=== PATIENT | female | born 1950 | race African-American/Black ===

== ENCOUNTER 2018-03-31 12:29 | Emergency (ER) | payer MEDICARE, MEDICAID ==
[~2018-03-31] VITALS: Ht 167.6 cm; Wt 75.0 kg
[~2018-03-31 12:29] MED LIST: BUPR300T54 PO; MIRT-91 PO; TRAZ-212 PO
[2018-03-31 12:38] VITALS: BP 137/68
== END 2018-03-31 16:56 | disposition left against medical advice (07) ==
LOC: ER 12:29
DX: M25.562 Pain in left knee (principal); F41.9 Anxiety disorder, unspecified; F32.9 Major depressive disorder, single episode, unspecified; F12.10 Cannabis abuse, uncomplicated; Z90.49 Acquired absence of other specified parts of digestive tract; Z53.21 Procedure and treatment not carried out due to patient leaving prior to being seen by health care provider

== ENCOUNTER 2019-03-11 19:16 | Emergency (ER) | payer MEDICARE, MEDICAID ==
[~2019-03-11] VITALS: Ht 167.6 cm; Wt 76.8 kg
[~2019-03-11 19:16] MED LIST changes: -TRAZ-212 PO; +TRAZ-251 PO
[2019-03-11 22:56] LABS: CLARITY URINE TURBID (CLEAR); COLOR URINE RED (YELLOW); KETONES URINE NEGATIVE (NEGATIVE); LEUKOCYTE ESTERASE URINE 2+ (NEGATIVE); NITRITE URINE NEGATIVE (NEGATIVE); OCCULT BLOOD URINE 3+ (NEGATIVE); PROTEIN URINE 2+ (NEGATIVE); SPECIFIC GRAVITY URINE 1.012 (1.005-1.030); UROBILINOGEN URINE 0.2 E.U./dL (0.2-1.0)
[2019-03-11 23:10] LABS: BASOPHILS % 0.3 % (0.0-2.0); EOSINOPHILS % 0.4 % (0.0-5.0); HEMATOCRIT. 39.8 % (36.0-48.0); HEMOGLOBIN. 13.3 g/dL (12.0-16.0); LYMPHOCYTES % 17.4 % (20.0-50.0); MEAN CORPUSCULAR HEMOGLOBIN 29.5 pg (28.0-32.0); MEAN CORPUSCULAR VOLUME 88.1 fL (81.0-99.0); MEAN PLATELET VOLUME 7.5 fl (7.4-10.4); MONOCYTES % 13.6 % (2.0-8.0); NEUTROPHILS % 68.3 % (40.0-76.0); PLATELET 316 x1000/uL (130-400); RED BLOOD CELL COUNT 4.52 mill/uL (4.2-5.4); RED CELL DISTRIBUTION WIDTH 14.9 % (11.6-14.6)
[2019-03-11 23:14] LABS: CHLORIDE 106 mEq/L (98-107)
[2019-03-11 23:16] LABS: INR 1.1; PARTIAL THROMBOPLASTIN TIME 30.3 sec (23.4-31.0)
[2019-03-11] MEDS ORDERED: CEFTRIAXONE 1 G PREMIX 50 ML IV NR (23:30)
[2019-03-12 02:30] VITALS: BP 122/83
== END 2019-03-12 02:30 | disposition home or self-care (01) ==
LOC: ER 19:16
DX: N39.0 Urinary tract infection, site not specified (principal); F12.10 Cannabis abuse, uncomplicated; Z98.890 Other specified postprocedural states; Z79.899 Other long term (current) drug therapy; R31.9 Hematuria, unspecified; N20.0 Calculus of kidney
CPT/HCPCS: 36415; 74176; 80053; 81003; 85025; 85610; 85730; 96365; 99284; J0696

== ENCOUNTER 2021-03-08 14:51 | Inpatient (IN) | payer MEDICARE, MEDICAID ==
[~2021-03-08] VITALS: Ht 167.6 cm; Wt 73.2 kg
[~2021-03-08 14:51] MED LIST changes: +BUPR-315 PO; -BUPR300T54 PO; +MIRT-90 PO; -MIRT-91 PO
[2021-03-08] MEDS ORDERED: ONDANSETRON HCL 4MG/2ML INJ IV STA (16:05)
[2021-03-08] MEDS ORDERED: MORPHINE SULFATE 4 MG/ML CPJ (NOT FOR IM USE) IV STA (16:05)
[2021-03-08] MEDS ORDERED: SODIUM CHLORIDE 0.9% 1,000 ML IV ONE (16:15)
[2021-03-08 16:24] LABS: BASOPHILS % 0.4 % (0.0-2.0); EOSINOPHILS % 1.3 % (0.0-5.0); HEMATOCRIT. 39.1 % (36.0-48.0); HEMOGLOBIN. 13.5 g/dL (12.0-16.0); LYMPHOCYTES % 28.4 % (20.0-50.0); MEAN CORPUSCULAR HEMOGLOBIN 30.2 pg (28.0-32.0); MEAN CORPUSCULAR VOLUME 87.3 fL (81.0-99.0); NEUTROPHILS % 55.9 % (40.0-76.0); PLATELET 417 x1000/uL (130-400); RED BLOOD CELL COUNT 4.48 mill/uL (4.2-5.4); RED CELL DISTRIBUTION WIDTH 14.4 % (11.6-14.6)
[2021-03-08 16:30] LABS: CHLORIDE 103 mEq/L (98-107)
[2021-03-08 16:32] LABS: INR 1.1; PROTHROMBIN TIME 11.7 sec (9.6-11.0)
[2021-03-08 19:11] LABS: CLARITY URINE CLEAR (CLEAR); COLOR URINE YELLOW (YELLOW); KETONES URINE NEGATIVE (NEGATIVE); LEUKOCYTE ESTERASE URINE TRACE (NEGATIVE); NITRITE URINE NEGATIVE (NEGATIVE); OCCULT BLOOD URINE NEGATIVE (NEGATIVE); PH URINE 5.5 (4.5-8.0); PROTEIN URINE NEGATIVE (NEGATIVE); SPECIFIC GRAVITY URINE 1.016 (1.005-1.030)
[2021-03-08] MEDS ORDERED: ACETAMINOPHEN 650MG SUPP PR PRN (21:30)
[2021-03-08] MEDS ORDERED: NALOXONE HCL 0.4MG/ML VIAL IV PRN (21:45)
[2021-03-08 22:55] VITALS: BP 142/75
[2021-03-09] VITALS: BP 142/75
[2021-03-09] MEDS: DEXT 5%/0.45% NACL KCL 10MEQ/L 1,000 ML IV SCH ×3 (00:15→16:00)
[2021-03-09] MEDS: ENOXAPARIN 40MG/0.4ML SYR SUBCUT SCH ×2 (00:16→21:22)
[2021-03-09] MEDS: HYDROMORPHONE HCL/PF 2MG/ML CPJ IV PRN ×3 (00:17→15:21)
[2021-03-09] MEDS ORDERED: AMLO5TAB88 PO (02:32)
[2021-03-09] MEDS ORDERED: BUSP10TA3 PO (02:32)
[2021-03-09] MEDS ORDERED: MIRT45TA83 PO (02:33)
[2021-03-09] MEDS ORDERED: TRAZ-252 PO (02:33)
[2021-03-09 04:00] VITALS: BP 138/99
[2021-03-09 08:05] VITALS: BP 138/87
[2021-03-09 10:37] LABS: HEMATOCRIT. 35.7 % (36.0-48.0); HEMOGLOBIN. 12.2 g/dL (12.0-16.0); MEAN CORPUSCULAR HEMOGLOBIN 30.5 pg (28.0-32.0); MEAN CORPUSCULAR VOLUME 89.5 fL (81.0-99.0); MEAN PLATELET VOLUME 7.4 fl (7.4-10.4); PLATELET 376 x1000/uL (130-400); RED BLOOD CELL COUNT 3.99 mill/uL (4.2-5.4); RED CELL DISTRIBUTION WIDTH 14.5 % (11.6-14.6)
[2021-03-09 10:45] LABS: CHLORIDE 107 mEq/L (98-107)
[2021-03-09] MEDS: METOCLOPRAMIDE HCL 10MG/2ML VIAL IV SCH ×2 (11:38→17:39)
[2021-03-09 11:47] LABS: PLATELET ESTIMATE NORMAL
[2021-03-09 12:01] VITALS: BP 153/83
[2021-03-09 16:18] VITALS: BP 135/78
[2021-03-09] MEDS: ONDANSETRON HCL 4MG/2ML INJ IV PRN (16:39)
[2021-03-09] MEDS ORDERED: HYDRALAZINE 10 MG in SODIUM CHLORIDE 0.9% 49.5 ML IV PRN (17:00)
[2021-03-09] MEDS ORDERED: HYDRALAZINE 20MG/ML VIAL IV PRN ×2 (17:00→17:45)
[2021-03-09] MEDS ORDERED: HYDRALAZINE 20MG/ML VIAL ONE (17:41)
[2021-03-09 20:00] VITALS: BP 110/74
[2021-03-10] VITALS: BP 132/76
[2021-03-10] MEDS: METOCLOPRAMIDE HCL 10MG/2ML VIAL IV SCH ×4 (00:27→19:04)
[2021-03-10 04:00] VITALS: BP 148/78
[2021-03-10] MEDS: DEXT 5%/0.45% NACL KCL 10MEQ/L 1,000 ML IV SCH ×2 (06:10→21:23)
[2021-03-10 08:00] VITALS: BP 152/96
[2021-03-10 12:00] VITALS: BP 129/84
[2021-03-10] MEDS: KETOROLAC 15MG/ML VIAL IV PRN ×2 (15:17→21:14)
[2021-03-10 16:00] VITALS: BP 168/92
[2021-03-10 20:00] VITALS: BP 170/99
[2021-03-10] MEDS: ENOXAPARIN 40MG/0.4ML SYR SUBCUT SCH (21:14)
[2021-03-11] VITALS: BP 163/99
[2021-03-11] MEDS: METOCLOPRAMIDE HCL 10MG/2ML VIAL IV SCH ×4 (00:16→18:13)
[2021-03-11 04:00] VITALS: BP 158/91
[2021-03-11] MEDS: KETOROLAC 15MG/ML VIAL IV PRN ×2 (05:09→15:02)
[2021-03-11 12:00] VITALS: BP 161/96
[2021-03-11] MEDS: HYDRALAZINE 20MG/ML VIAL IV PRN (13:30)
[2021-03-11] MEDS: DEXT 5%/0.45% NACL KCL 10MEQ/L 1,000 ML IV SCH (15:13)
[2021-03-11 20:00] VITALS: BP 127/79
[2021-03-11] MEDS: ONDANSETRON HCL 4MG/2ML INJ IV PRN (20:06)
[2021-03-11] MEDS: ENOXAPARIN 40MG/0.4ML SYR SUBCUT SCH (20:34)
[2021-03-12] VITALS: BP 149/75
[2021-03-12] MEDS: METOCLOPRAMIDE HCL 10MG/2ML VIAL IV SCH ×4 (00:50→18:39)
[2021-03-12] MEDS: KETOROLAC 15MG/ML VIAL IV PRN (02:31)
[2021-03-12 04:00] VITALS: BP 122/76
[2021-03-12] MEDS: DEXT 5%/0.45% NACL KCL 10MEQ/L 1,000 ML IV SCH ×2 (04:31→12:19)
[2021-03-12 08:00] VITALS: BP 105/81
[2021-03-12 12:00] VITALS: BP 138/84
[2021-03-12] MEDS ORDERED: DIATR MEGLU/DIATRIZOATE SOLN 120ML ONE (15:22)
[2021-03-12 16:00] VITALS: BP 125/81
[2021-03-12 19:55] LABS: BASOPHILS % 0.4 % (0.0-2.0); EOSINOPHILS % 0.7 % (0.0-5.0); HEMATOCRIT. 39.1 % (36.0-48.0); HEMOGLOBIN. 13.3 g/dL (12.0-16.0); LYMPHOCYTES % 23.7 % (20.0-50.0); MEAN CORPUSCULAR HEMOGLOBIN 29.9 pg (28.0-32.0); MEAN CORPUSCULAR VOLUME 87.8 fL (81.0-99.0); MEAN PLATELET VOLUME 7.3 fl (7.4-10.4); MONOCYTES % 10.1 % (2.0-8.0); NEUTROPHILS % 65.1 % (40.0-76.0); PLATELET 431 x1000/uL (130-400); RED BLOOD CELL COUNT 4.46 mill/uL (4.2-5.4); RED CELL DISTRIBUTION WIDTH 14.2 % (11.6-14.6)
[2021-03-12 20:00] VITALS: BP 153/67
[2021-03-12] MEDS: ENOXAPARIN 40MG/0.4ML SYR SUBCUT SCH (20:48)
[2021-03-13] VITALS: BP 186/70
[2021-03-13] MEDS: DEXT 5%/0.45% NACL KCL 10MEQ/L 1,000 ML IV SCH ×2 (00:28→13:06)
[2021-03-13] MEDS: METOCLOPRAMIDE HCL 10MG/2ML VIAL IV SCH ×3 (00:32→13:06)
[2021-03-13] MEDS: HYDRALAZINE 20MG/ML VIAL IV PRN ×2 (00:32→09:25)
[2021-03-13 04:52] VITALS: BP 126/73
[2021-03-13] MEDS: KETOROLAC 15MG/ML VIAL IV PRN (05:26)
[2021-03-13 08:30] VITALS: BP 182/91
[2021-03-13 10:00] VITALS: BP 159/64
[2021-03-13] MEDS ORDERED: POTASSIUM CHLORIDE 20MEQ TABLET SR PO NR ×2 (11:30→13:45)
[2021-03-13 12:00] VITALS: BP 142/67
[2021-03-13 13:00] LABS: CHLORIDE 111 mEq/L (98-107)
[2021-03-13 13:23] VITALS: BP 141/64
== END 2021-03-13 15:30 | disposition home health service (06) | DRG 390 ==
LOC: ER 14:51 → 6WST 20:15 → ENRESERV 23:21
PROVIDERS: ADMIT Hospitalist; ATTEND Hospitalist
PROC: 0D9670Z Drainage of Stomach with Drainage Device, Via Natural or Artificial Opening (ICD-10-PCS; principal; 2021-03-08)
DX: K56.609 Unspecified intestinal obstruction, unspecified as to partial versus complete obstruction (principal); I10 Essential (primary) hypertension; E87.6 Hypokalemia; Z82.49 Family history of ischemic heart disease and other diseases of the circulatory system; Z90.49 Acquired absence of other specified parts of digestive tract
CPT/HCPCS: 36415; 74018; 74176; 74250; 80048; 80051; 80053; 81003; 83735; 85025; 93970; 99291; C1893; J0360; J1170; J1650; J1885; J2270; J2310; J2405; J2765; J7030; Q9963

== ENCOUNTER 2022-12-31 11:19 | Emergency (ER) | payer MEDICARE, MEDICAID ==
[~2022-12-31] VITALS: Ht 167.6 cm; Wt 74.0 kg
[~2022-12-31 11:19] MED LIST changes: +AMLO5TAB88 PO; +BUSP10TA3 PO; +MIRT45TA83 PO; +TRAZ-252 PO
[2022-12-31 11:33] VITALS: BP 116/72; PULSE 69; RESP 20; TEMP 98.2; O2SAT 97
== END 2022-12-31 13:16 | disposition left against medical advice (07) ==
LOC: ER 11:19
DX: Z53.21 Procedure and treatment not carried out due to patient leaving prior to being seen by health care provider (principal)
CPT/HCPCS: 99281

== ENCOUNTER 2024-12-12 14:58 | Emergency (ER) | payer OTHER, BC ==
[~2024-12-12] VITALS: Ht 167.6 cm; Wt 66.0 kg
[~2024-12-12 14:58] MED LIST changes: -BUPR-315 PO; +BUPR-710 PO
[2024-12-12 15:02] VITALS: O2SAT 99
[2024-12-12 16:32] LABS: BASOPHILS % 0.5 % (0.0-2.0); EOSINOPHILS % 1.0 % (0.0-5.0); HEMATOCRIT. 41.2 % (36.0-48.0); HEMOGLOBIN. 13.8 g/dL (12.0-16.0); LYMPHOCYTES % 30.8 % (20.0-50.0); MEAN PLATELET VOLUME 7.0 fl (7.4-10.4); MONOCYTES % 10.0 % (2.0-8.0); NEUTROPHILS % 57.7 % (40.0-76.0); PLATELET 332 x1000/uL (130-400); RED BLOOD CELL COUNT 4.53 mill/uL (4.2-5.4); RED CELL DISTRIBUTION WIDTH 13.7 % (11.6-14.6)
[2024-12-12 16:40] LABS: INR 1.0
[2024-12-12 16:44] LABS: CREATININE 0.9 mg/dL (0.6-1.0)
[2024-12-12 16:45] LABS: UREA NITROGEN BLOOD 12 mg/dL (9-23)
[2024-12-12 16:46] LABS: TROPONIN I HIGH SENSITIVITY 6 ng/L (3.0-34)
[2024-12-12] MEDS: ACETAMINOPHEN 500MG TABLET PO ONE (18:04)
[2024-12-12] MEDS: LIDOCAINE 5% PATCH TOP SCH (18:50)
[2024-12-12] MEDS: KETOROLAC 30MG/ML VIAL IM ONE (18:50)
[2024-12-12] MEDS ORDERED: LIDO-53 TP (18:52)
[2024-12-12] MEDS ORDERED: ACET-2708 MT (18:52)
[2024-12-12 19:43] VITALS: BP 166/97; PULSE 60; RESP 16; TEMP 36.7; O2SAT 99
== END 2024-12-12 19:53 | disposition home or self-care (01) ==
LOC: ER 14:58
DX: M54.2 Cervicalgia (principal); F32.A Depression, unspecified; I10 Essential (primary) hypertension; F12.90 Cannabis use, unspecified, uncomplicated; Z79.899 Other long term (current) drug therapy; Z79.01 Long term (current) use of anticoagulants; V89.2XXA Person injured in unspecified motor-vehicle accident, traffic, initial encounter; Y93.89 Activity, other specified; Y92.89 Other specified places as the place of occurrence of the external cause; Y99.8 Other external cause status
CPT/HCPCS: 99285; 70450; 80048; 83690; 85025; 85610; 86850; 86900; 86901; 84484; 36415; 72125; 74176; 96372; J1885